=== PATIENT | female | born 1965 | race Hispanic/Latino ===

== ENCOUNTER 2023-03-21 13:12 | Emergency (ER) | payer OTHER | END 2023-03-21 16:23 | disposition home or self-care (01) | LOC: CSHERS 13:12 | DX: K08.89 Other specified disorders of teeth and supporting structures (principal); K05.00 Acute gingivitis, plaque induced; B37.0 Candidal stomatitis; I10 Essential (primary) hypertension | CPT/HCPCS: 87081; 87430; 99283 ==